=== PATIENT | female | born 1935 | race Hispanic/Latino ===

== ENCOUNTER 2016-09-29 09:50 | Inpatient (IN) | payer MEDICARE ==
[2016-09-29 09:59] VITALS: BMI 29.8
[2016-09-29 10:49] LABS: ADD MANUAL DIFF? NO
[2016-09-29 10:51] LABS: BASO # 0.03 K/mm3 (0.0-2.0); BASO % 0.4 % (0.0-3.0); EOS % 0.4 % (1.5-5.0); GRAN # 6.13 (1.4-6.5); GRAN % 77.1 % (50.0-68.0); HEMATOCRIT 34.7 % (36.0-48.0); LYMPH # 1.1 (1.2-3.4); LYMPH % 13.4 % (22.0-35.0); MEAN CELL VOLUME 92.8 fL (80.0-105.0); MEAN CORPUSCULAR HEMOGLOBIN 31.3 pg (25.0-35.0); MEAN CORPUSCULAR HGB CONC 33.7 g/dl (31.0-37.0); MEAN PLATELET VOLUME 9.9 fl (7.0-11.0); MONO # 0.7 (0.1-0.6); MONO % 8.7 % (1.0-6.0); PLATELET COUNT 147 10^3/uL (120.0-450.0); RED CELL DISTRIBUTION WIDTH 12.3 % (11.5-14.5); WHITE BLOOD COUNT 7.9 10^3/ul (4.5-11.0)
[2016-09-29 10:52] LABS: VENOUS BLOOD PH 7.33 (7.32-7.43)
[2016-09-29 11:03] LABS: INR 1.05 (0.93-1.08); PARTIAL THROMBOPLASTIN TIME 25.1 Seconds (23.7-30.8)
[2016-09-29 11:08] LABS: ALB/GLOB RATIO 1.2 (1.1-1.8); BILIRUBIN,TOTAL 1.8 mg/dL (0.2-1.3); MAGNESIUM 1.8 mg/dL (1.7-2.2); PHOSPHOROUS 2.9 mg/dL (2.5-4.5); TOTAL PROTEIN 6.9 g/dL (5.8-8.3)
[2016-09-29 11:22] LABS: TROPONIN I 0.01 ng/mL
--- NOTE | 2016-09-29 11:30 | ED PDOC ---
Arrival/HPI - General Chief Complaint: Weakness/Neurological Deficit Time Seen by Provider: 09/29/16 10:17 Historian: Patient - History of Present Illness Narrative History of Present Illness (Text): 09/29/16 12:06 80 year old female presents to the emergency department with generalized weakness and fall yesterday and today. Brother states that patient fell yesterday and that he found the patient again on the floor this morning. He reports that she has been falling more frequently. Hx of limited by the patient who is refusing to answer questions but will follow commands. Denies any medications. PMD: Dr. Hein Time/Duration: < week Symptom Onset: Gradual Symptom Course: Unchanged Modifying Factors (Text): None Associated Symptoms (Text): None Past Medical History - Provider Review Nursing Documentation Reviewed: Yes - Psychiatric Hx Substance Use: No Family/Social History - Physician Review Nursing Documentation Reviewed: Yes Family/Social History: Unknown Family HX Smoking Status: Never Smoked Hx Alcohol Use: No Hx Substance Use: No Allergies/Home Meds Allergies/Adverse Reactions: Allergies No Known Allergies Allergy (Verified 09/29/16 09:59) Review of Systems - Review of Systems Systems not reviewed;Unavailable: Uncooperative Physical Exam Vital Signs Reviewed: Yes Vital Signs Temp Pulse Resp BP Pulse Ox 09/29/16 14:15 98.6 F 79 16 118/64 98 09/29/16 13:55 96 H 16 118/64 98 09/29/16 12:16 80 16 124/116 H 98 09/29/16 12:10 83 16 99 09/29/16 10:39 147 H 149/76 09/29/16 10:00 98.5 F 83 16 154/83 H 97 Temperature: Afebrile Blood Pressure: Normal Pulse: Regular Respiratory Rate: Normal Appearance: Positive for: Well-Appearing, Non-Toxic, Comfortable Pain Distress: None Mental Status: Positive for: other (Nonverbal but awake and alert, following commands) Finger Stick Blood Glucose: 176 - Systems Exam Head: Present: Normocephalic, Ecchymosis (to the right cheek) Pupils: Present: PERRL Extroacular Muscles: Present: EOMI Conjunctiva: Present: Normal Ears: Present: Other (Left TM and right TM impacted with wax) Mouth: Present: Moist Mucous Membranes Neck: Present: Normal Range of Motion Respiratory/Chest: Present: Clear to Auscultation, Good Air Exchange. No: Respiratory Distress, Accessory Muscle Use Cardiovascular: Present: Normal S1, S2, Irregular Rhythm (Irregularly irregular) , Tachycardic. No: Murmurs Abdomen: Present: Normal Bowel Sounds. No: Tenderness, Distention, Peritoneal Signs Upper Extremity: Present: Normal ROM, Neurovascularly Intact, Other (Ecchymosis to the left shoulder). No: Tenderness Lower Extremity: Present: Normal ROM, Other (No bony hip tenderness). No: Tenderness Neurological: Present: CN II-XII Intact, Other (Moving all extremities without difficulty) Skin: Present: Warm, Dry, Normal Color. No: Rashes Psychiatric: Present: Alert, Other (Nonverbal but awake and alert, following commands) Medical Decision Making ED Course and Treatment: Impression: Patient presenting from home with fall and in new onset afib. Brother reports that this is patient's neurologic baseline, but I am concerned as she is refusing to answer questions. He continues to report "she is stubborn." In addition to observation for new onset afib, will need workup to r/o cva due to AMS, as well as labs, ua, and imaging to r/o traumatic injury, sepsis and electrolyte abnormality PROCEDURE: CT HEAD WITHOUT CONTRAST. Stone Polisher Hand : Misael Reagan MD IMPRESSION: No acute intracranial abnormalities. No significant findings to account for the clinical presentation PROCEDURE: Radiographs of the Left Shoulder Stone Polisher Hand : Dakhel, Mahmoud JOINTS: Mild osteoarthritic changes at the AC joint. Narrowing of the subacromial space. IMPRESSION: No evidence of acute fracture or dislocation. Mild osteoarthritic changes of the AC joint. PROCEDURE: Radiographs of the pelvis and bilateral hips Stone Polisher Hand : Dakhel, Mahmoud JOINTS: Right hip: Mild osteoarthritic changes Left hip: Mild osteoarthritic changes Sacroiliac Joints: Mild arthritic changes IMPRESSION: No evidence of acute fracture or dislocation. Mild osteoarthritic changes. Progress Notes: Inital EKG at 09:52 shows NSR at 79 BPM with PAC's. Repeat EKG done at 10:21 shows irregularly irregular rhythm at 156 BPM, consistent with atrial fibrillation. Cardizem ordered. Repeat EKG at 10:41 showed rate controlled afib at 100bpm. 09/29/16 12:24 Dr. Stone evaluated patient at bedside. Requesting sotalol 40mg bid which was ordered. Patient has converted and is rate controlled. 09/29/16 12:28 Labs reviewed. Trop negative. UA negative 09/29/16 13:28 CT head negative. Aspirin ordered. P:xrays and admission for new onset afib 09/29/16 14:12 Xrays negative for fracture. Spoke to PMD who agrees with admission for new onset afib. She will also need PT eval as I am concerned about her frequent falls/AMS that may necessitate rehab placement. 09/29/16 14:19 Sisters are now at bedside and report that patient is special needs. However, they are also concerned that she appears more disoriented than normally. - Lab Interpretations Lab Results: 09/29/16 10:30 09/29/16 10:30 Lab Results 09/29/16 12:10: Urine Color Yellow, Urine Appearance Clear, Urine pH 7.0, Ur Specific Tracy 1.020, Urine Protein 30 H, Urine Glucose (UA) Negative, Urine Ketones Trace H, Urine Blood Large H, Urine Nitrate Negative, Urine Bilirubin Negative, Urine Urobilinogen 0.2, Ur Leukocyte Esterase Negative, Urine RBC 20 - 25, Urine WBC 0 - 2, Ur Epithelial Cells 4 - 5, Amorphous Sediment Moderate, Urine Bacteria Many, Hyaline Casts 0 - 2 09/29/16 10:30: WBC 7.9, RBC 3.74, Hgb 11.7 L, Hct 34.7 L, MCV 92.8, MCH 31.3, MCHC 33.7, RDW 12.3, Plt Count 147, MPV 9.9, Gran % 77.1 H, Lymph % (Auto) 13.4 L, Upton % (Auto) 8.7 H, Eos % (Auto) 0.4 L, Baso % (Auto) 0.4, Gran # 6.13, Lymph # 1.1 L, Upton # 0.7 H, Eos # 0.0, Baso # 0.03, PT 11.3, INR 1.05, APTT 25.1, pO2 33, VBG pH 7.33, VBG pCO2 53.0, VBG HCO3 27.9, VBG Total CO2 29.5 H, VBG O2 Sat (Calc) 63.6, VBG Base Excess 1.0, VBG Potassium 4.0, Glucose 167 H, Lactate 1.6, FiO2 21.0, Sodium 140.0, Potassium 4.0, Chloride 109.0 H, Carbon Dioxide 27, Anion Gap 11, BUN 26 H, Creatinine 1.1, Est GFR ( Amer) 58, Est GFR (Non-Af Amer) 48, Random Glucose 162 H, Calcium 9.0, Phosphorus 2.9, Magnesium 1.8, Total Bilirubin 1.8 H, AST 20, ALT 17, Alkaline Phosphatase 92, Total Creatine Kinase 189, Troponin I 0.01, Total Protein 6.9, Albumin 3.7, Globulin 3.2, Albumin/Globulin Ratio 1.2, Venous Blood Potassium 4.0 - RAD Interpretation Radiology Orders: 09/29/16 10:18 HEAD W/O CONTRAST [CT] Stat HIP MIN 2V W/ PELVIS JOSE [RAD] Stat SHOULDER LEFT [RAD] Stat 09/29/16 11:28 CHEST TWO VIEWS (PA/LAT) [RAD] Stat Riverboat Master: Radiologist - Medication Orders Current Medication Orders: Sotalol HCl (Betapace) 40 mg PO BID ZACHARY Discontinued Medications Aspirin (Aspirin) 325 mg PO STAT STA Stop: 09/29/16 13:30 Last Admin: 09/29/16 13:35 Dose: 325 MG Diltiazem HCl (Cardizem) Confirm Administered Dose 25 mg .ROUTE .[place] ONE Stop: 09/29/16 10:33 Last Admin: 09/29/16 10:39 Dose: Diltiazem HCl (Cardizem) 15 mg IVP STAT STA Stop: 09/29/16 10:39 Last Admin: 09/29/16 10:39 Dose: 15 MG [facility] Pulse and Blood Pressure Document 09/29/16 10:39 HP (Rec: 09/29/16 10:40 [facility] [id number]) Pulse Pulse Rate (60-90) 147 Blood Pressure Blood Pressure (100/60-150/90) 149/76 IVP Administration Document 09/29/16 10:39 HP (Rec: 09/29/16 10:40 [facility] [id number]) Charges for Administration # of IVP Administrations 1 Ondansetron HCl (Zofran Inj) Confirm Administered Dose 4 mg .ROUTE .[place] ONE Stop: 09/29/16 11:54 Last Admin: 09/29/16 12:11 Dose: Ondansetron HCl (Zofran Inj) 4 mg IVP STAT STA Stop: 09/29/16 12:11 Last Admin: 09/29/16 12:12 Dose: 4 MG IVP Administration Document 09/29/16 12:12 HP (Rec: 09/29/16 12:12 [facility] [id number] Charges for Administration # of IVP Administrations 1 Disposition/Present on Arrival - Present on Arrival Any Indicators Present on Arrival: No History of DVT/PE: No History of Uncontrolled Diabetes: No Urinary Catheter: No History of Decub. Ulcer: No History Surgical Site Infection Following: None - Disposition Have Diagnosis and Disposition been Completed?: Yes Diagnosis: Atrial fibrillation Disposition: HOSPITALIZED Disposition Time: 10:28 Patient Plan: Admission Patient Problems: Current Active Problems Problem Status Diagnosed Atrial fibrillation Acute Condition: FAIR
[2016-09-29 12:23] LABS: URINE BILIRUBIN NEGATIVE (NEGATIVE); URINE BLOOD LARGE (NEGATIVE); URINE GLUCOSE (UA) NEGATIVE (NEGATIVE); URINE KETONE TRACE mg/dL (NEGATIVE); URINE LEUKOCYTE ESTERASE NEGATIVE Leu/uL (NEGATIVE); URINE PROTEIN 30 mg/dL (<30 mg/dL); URINE UROBILINOGEN 0.2 E.U./dL (<1 E.U./dL)
[2016-09-29 12:25] LABS: URINE APPEARANCE CLEAR (CLEAR); URINE COLOR YELLOW (YELLOW)
[2016-09-29 12:32] LABS: URINE RBC 20 - 25 /hpf (0-2); URINE WBC 0 - 2 /hpf (0-6)
[2016-09-29 12:33] LABS: URINE AMORPHOUS SEDIMENT MODERATE; URINE BACTERIA MANY (NEG)
--- NOTE | 2016-09-29 13:25 | CT ---
PROCEDURE: CT HEAD WITHOUT CONTRAST. HISTORY: Unspecified head injury presenting with weakness. COMPARISON: None available. TECHNIQUE: Axial computed tomography images were obtained through the head/brain without intravenous contrast. Radiation dose: Total exam DLP = 789.72 no mGy-cm. FINDINGS: HEMORRHAGE: No intracranial hemorrhage. BRAIN: No mass effect or edema. Cerebellar, cortical atrophy. VENTRICLES: Unremarkable. No hydrocephalus. CALVARIUM: Unremarkable. PARANASAL SINUSES: Unremarkable as visualized. No significant inflammatory changes. MASTOID AIR CELLS: Unremarkable as visualized. No inflammatory changes. OTHER FINDINGS: None. IMPRESSION: No acute intracranial abnormalities. No significant findings to account for the clinical presentation.
--- NOTE | 2016-09-29 14:04 | RAD ---
PROCEDURE: Radiographs of the pelvis and bilateral hips HISTORY: fall COMPARISON: None. FINDINGS: BONES: Pelvis: Unremarkable. Right hip:Unremarkable. Left hip:Unremarkable. JOINTS: Right hip: Mild osteoarthritic changes Left hip: Mild osteoarthritic changes Sacroiliac Joints: Mild arthritic changes Pubic symphysis: Unremarkable. SOFT TISSUES: Normal. OTHER FINDINGS: None. IMPRESSION: No evidence of acute fracture or dislocation. Mild osteoarthritic changes.
--- NOTE | 2016-09-29 14:06 | RAD ---
PROCEDURE: Radiographs of the Left Shoulder HISTORY: shoulder pain COMPARISON: No prior. FINDINGS: BONES: Normal. No fracture. JOINTS: Mild osteoarthritic changes at the AC joint. Narrowing of the subacromial space. SOFT TISSUES: Normal. OTHER FINDINGS: None. IMPRESSION: No evidence of acute fracture or dislocation. Mild osteoarthritic changes of the AC joint.
--- NOTE | 2016-09-29 14:07 | RAD ---
HISTORY: fall COMPARISON: No prior. TECHNIQUE: Chest PA and lateral FINDINGS: LUNGS: No active pulmonary disease. PLEURA: No significant pleural effusion identified. No pneumothorax apparent. CARDIOVASCULAR: Normal. OSSEOUS STRUCTURES: Suspicious for diffuse osteopenia. Degenerative changes at the thoracic spine. VISUALIZED UPPER ABDOMEN: Normal. OTHER FINDINGS: Mild to moderate elevation of the right hemidiaphragm IMPRESSION: No active disease. Baseline study. Icgi-tl-gchnyhmh elevation of the right hemidiaphragm.
--- NOTE | 2016-09-29 14:30 | CON ---
DATE: 09/29/2016 HISTORY OF PRESENT ILLNESS: The patient is a 80-year-old woman who lives at home, who presented with weakness. PAST MEDICAL HISTORY: Notable for confusion in the past. No previous cardiac history can be elicite d. The patient is unable to give a full history due to her confusion. However, through the brother, who she lives with, she has been complaining of weakness. There was a questionable fall yesterday. In the Emergency Room, she was found to be in atrial fibrillation. After placing the patient on dilt iazem, the patient reverted to normal sinus rhythm. Negative cardiac history is elicited. The patient is in no acute distress. SOCIAL HISTORY AND REVIEW OF SYSTEMS: Unavailable. PHYSICAL EXAMINATION: VITAL SIGNS: Blood pressure is 124/76, the heart rate is now in the 80s, normal sinus rhythm. Previ ously, the patient was in atrial fibrillation at 147. NECK: Negative JVD. LUNGS: Decreased breath sounds. HEART: Revealed S1, S2. EXTREMITIES: Without edema. EKG shows atrial fibrillation with nonspecific ST-T changes. The hemoglobin is 11.7. BUN and creatinine are unremarkable. Troponin is negative x 1. The glucose is 162. IMPRESSION: 1. Weakness. 2. New onset paroxysmal atrial fibrillation. 3. Anemia. 4. Dementia. Given these findings, we will start the patient on sotalol 40 mg b.i.d. An echocardiogram has been o rdered. The patient will be admitted to telemetry for observation. Chuy Stone MD cc: [id number] TT: 09/29/2016 14:29:55 Confirmation # [id number] Dictation # [id number] en
--- NOTE | 2016-09-29 15:32 | CARD ---
APPROVED REPORT EKG Measurement Heart [id number] <Conclusion> Atrial fibrillation with rapid ventricular response Abnormal ECG
--- NOTE | 2016-09-29 15:33 | CARD ---
APPROVED REPORT EKG Measurement Heart [id number] <Conclusion> Atrial fibrillation Nonspecific ST abnormality, probably digitalis effect Abnormal ECG
--- NOTE | 2016-09-29 15:33 | CARD ---
APPROVED REPORT EKG Measurement Heart [id number] <Conclusion> Atrial fibrillation with rapid ventricular response Nonspecific ST abnormality, probably digitalis effect Abnormal ECG
--- NOTE | 2016-09-29 15:36 | CARD ---
APPROVED REPORT EKG Measurement Heart [id number] <Conclusion> Sinus rhythm with premature atrial complexes Otherwise normal ECG
[2016-09-29] MEDS: Dextrose 5%/0.45% NS 1,000 ML IV SCH (20:30)
[2016-09-29] MEDS: Enoxaparin 30 mg Syringe SC SCH (21:48)
[2016-09-29] MEDS ORDERED: Pneumococcal 23-Valent Vaccine IM ONE (22:30)
[2016-09-29] MEDS ORDERED: Influenza Vaccine 45 MCG/0.5 ml IM ONE (22:30)
--- NOTE | 2016-09-29 23:01 | CP.PCM.PN ---
Subjective - Date & Time of Evaluation Date of Evaluation: 09/29/16 Time of Evaluation: 23:00 - Subjective Subjective: 80 year old white male was admitted with generalized weakness and fall. Has PMH of atrial fibrillation, borderline anemia, hyperglycemia, dementia. Patient states that he is in home and this is November month. As per nurse she is pulling tubing,Cox and is confused. Medical record was reviewed. Objective - Vital Signs/Intake and Output Vital Signs (last 24 hours): Temp Pulse Resp BP Pulse Ox 97.8 F 78 18 141/72 99 09/29/16 22:16 09/29/16 22:16 09/29/16 22:16 09/29/16 22:16 09/29/16 19:24 Intake and Output: 09/29/16 09/30/16 18:59 06:59 Output Total 680 Balance -680 - Medications Medications: Current Medications Aspirin (Ecotrin) 81 mg PO DAILY [facility] Atorvastatin Calcium (Lipitor) 10 mg PO DIN [facility] Enoxaparin Sodium (Lovenox) 30 mg SC Q12H [facility] PRN Reason: Protocol Last Admin: 09/29/16 21:48 Dose: 30 mg Dextrose/Sodium Chloride (Dextrose 5%/0.45% Ns 1000 Ml) 1,000 mls @ 60 mls/hr IV .[id number] [facility] Last Admin: 09/29/16 20:30 Dose: 60 mls/hr Sotalol HCl (Betapace) 40 mg PO BID [facility] Last Admin: 09/29/16 18:35 Dose: 40 mg - Labs Labs: PT 11.3 Seconds (9.9-11.8) 09/29/16 10:30 INR 1.05 (0.93-1.08) 09/29/16 10:30 APTT 25.1 Seconds (23.7-30.8) 09/29/16 10:30 - Constitutional Appears: Well, No Acute Distress - Head Exam Head Exam: ATRAUMATIC, NORMAL INSPECTION, NORMOCEPHALIC - Eye Exam Eye Exam: Normal appearance - ENT Exam ENT Exam: Normal External Ear Exam - Neck Exam Neck Exam: Normal Inspection - Respiratory Exam Respiratory Exam: NORMAL BREATHING PATTERN - Cardiovascular Exam Cardiovascular Exam: absent: JVD - GI/Abdominal Exam GI & Abdominal Exam: absent: Distended - Rectal Exam Rectal Exam: Deferred - Extremities Exam Extremities Exam: Normal Inspection - Back Exam Back Exam: NORMAL INSPECTION - Neurological Exam Neurological Exam: Altered (mental status +) - Psychiatric Exam Psychiatric exam: Agitated - Skin Skin Exam: Normal Color Assessment and Plan - Assessment and Plan (Free Text) Assessment: A/P: Agitation. Altered mental status. Dementia. Atrial fibrillation with RVR. Bilateral wrist restraint order was entered.
[2016-09-30 03:49] LABS: URINE BILIRUBIN NEGATIVE (NEGATIVE); URINE BLOOD LARGE (NEGATIVE); URINE GLUCOSE (UA) NEGATIVE (NEGATIVE); URINE KETONE 15 mg/dL (NEGATIVE); URINE LEUKOCYTE ESTERASE SMALL Leu/uL (NEGATIVE); URINE PROTEIN 30 mg/dL (<30 mg/dL)
[2016-09-30 04:00] LABS: URINE APPEARANCE SLIGHT-CLOUDY (CLEAR); URINE COLOR YELLOW (YELLOW)
[2016-09-30 04:03] LABS: URINE BACTERIA OCC (NEG); URINE EPITHELIAL CELLS 0 - 2 /hpf (0-5)
[2016-09-30 07:23] LABS: ADD MANUAL DIFF? NO
[2016-09-30 07:34] LABS: BASO # 0.02 K/mm3 (0.0-2.0); BASO % 0.3 % (0.0-3.0); EOS # 0.1 (0.0-0.7); EOS % 2.1 % (1.5-5.0); GRAN # 4.01 (1.4-6.5); GRAN % 65.6 % (50.0-68.0); HEMATOCRIT 34.5 % (36.0-48.0); LYMPH # 1.5 (1.2-3.4); LYMPH % 23.7 % (22.0-35.0); MEAN CELL VOLUME 91.8 fL (80.0-105.0); MEAN CORPUSCULAR HEMOGLOBIN 30.9 pg (25.0-35.0); MEAN CORPUSCULAR HGB CONC 33.6 g/dl (31.0-37.0); MEAN PLATELET VOLUME 10.3 fl (7.0-11.0); MONO # 0.5 (0.1-0.6); MONO % 8.3 % (1.0-6.0); PLATELET COUNT 163 10^3/uL (120.0-450.0); RED CELL DISTRIBUTION WIDTH 12.2 % (11.5-14.5); RETIC% 1.21 % (0.5-1.5); WHITE BLOOD COUNT 6.1 10^3/ul (4.5-11.0)
[2016-09-30 08:16] LABS: BILIRUBIN,TOTAL 2.1 mg/dL (0.2-1.3); POTASSIUM 3.7 mmol/L (3.6-5.0); TOTAL PROTEIN 6.8 g/dL (5.8-8.3)
[2016-09-30 08:24] LABS: FREE T4 1.53 ng/dL (0.78-2.19)
[2016-09-30 08:37] LABS: THYROID STIMULATING HORMONE 1.35 mIU/mL (0.46-4.68)
[2016-09-30] MEDS: Enoxaparin 30 mg Syringe SC SCH ×2 (09:19→21:05)
--- NOTE | 2016-09-30 10:55 | PN ---
DATE: 09/30/2016 The patient remains confused. Her swallow evaluation revealed abnormalities in her swallowing mechan ism. PHYSICAL EXAMINATION: VITAL SIGNS: Blood pressure is 137/73, the heart rate is in the 70s, normal sinus rhythm. NECK: Negative JVD. LUNGS: Decreased breath sounds. HEART: Revealed S1, S2. EXTREMITIES: Without edema. LABORATORIES: TFTs are unremarkable. Bilirubin is up to 2.1, BUN and creatinine are unremarkable. Hemoglobin is 11.6. IMPRESSION: 1. Paroxysmal atrial fibrillation, which is back to normal sinus rhythm. 2. Weakness. 3. Marked dementia. 4. Anemia. 5. Marked confusion. Given these findings, we will continue to monitor the patient on telemetry for the next 24 hours. We will need to consider placing a nasogastric feeding tube for her. An echocardiogram is pending. Chuy Stone MD cc: [id number] TT: 09/30/2016 10:54:10 Confirmation # [id number] Dictation # [id number] en
[2016-09-30 13:32] LABS: FOLATE 2.7 ng/mL
--- NOTE | 2016-09-30 13:41 | US ---
PROCEDURE: Bilateral carotid artery duplex ultrasound HISTORY: Carotid stenosis ? TIA PHYSICIAN(S): Chuy Frank MD. TECHNIQUE: Duplex sonography and color-flow Doppler were used to evaluate the carotid bifurcations and limited segments of the vertebral arteries bilaterally. The exam is somewhat limited by tortuous vessels. FINDINGS: There is mild smooth heterogeneous plaque noted at the carotid bifurcations bilaterally. The peak systolic velocity in the proximal right internal carotid artery is 75 cm/sec. This corresponds to a 20 to 39% proximal right ICA stenosis. Normal systolic velocities are noted in the proximal right external carotid artery. There is antegrade flow in the right vertebral artery. The peak systolic velocity in the proximal left internal carotid artery is 71 cm/sec. This corresponds to a 20 to 39% proximal left ICA stenosis. Normal systolic velocities are noted in the proximal left external carotid artery. There is antegrade flow in the left vertebral artery. IMPRESSION: 1. 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 2. Antegrade flow in both vertebral arteries.
[2016-09-30] MEDS: Dextrose 5%/0.45% NS 1,000 ML IV SCH (15:33)
--- NOTE | 2016-09-30 17:44 | CARD ---
APPROVED REPORT EXAM: Two-dimensional and M-mode echocardiogram with Doppler and color Doppler. INDICATION Atrial Fibrillation 2D DIMENSIONS Left Atrium (2D)3.1 (1.6-4.0cm)IVSd0.9 (0.7-1.1cm) LVDd4.4 (3.9-5.9cm)PWd1.1 (0.7-1.1cm) LVDs3.3 (2.5-4.0cm)FS (%) 26.1 % LVEF (%)51.5 (>50%) M-Mode DIMENSIONS Aortic Root2.40 (2.2-3.7cm)Aortic Cusp Exc.1.60 (1.5-2.0cm) Aortic Valve AoV Peak Enynhuoi693.0cm/Lupe Peak GR.20mmHg Mitral Valve MV E Byhxysje76.9cm/sMV A Wpdiudph940.0cm/sE/A ratio0.7 TDI E/Lateral E'0.0E/Medial E'0.0 Tricuspid Valve TR Peak Fexbvbdh979ze/sRAP HYBQBVLL73saDcZC Peak Gr.27mmHg TKAK92qmBi LEFT VENTRICLE The left ventricle is normal size. There is borderline concentric left ventricular hypertrophy. The left ventricular function is normal. The left ventricular ejection fraction is within the normal range. Transmitral Doppler flow pattern is Grade I-abnormal relaxation pattern. RIGHT VENTRICLE The right ventricle is normal size. There is normal right ventricular wall thickness. The right ventricular systolic function is normal. ATRIA The left atrium size is normal. The right atrium size is normal. AORTIC VALVE The aortic valve is mildly thickened. MITRAL VALVE Mitral regurgitation is mild to moderate. TRICUSPID VALVE There is mild tricuspid regurgitation. There is mild pulmonary hypertension. PULMONIC VALVE There is trace pulmonic valvular regurgitation. GREAT VESSELS The aortic root displays mild to moderate sclerocalcific changes of the aortic root. PERICARDIAL EFFUSION There is a trace loculated anterior pericardial effusion. <Conclusion> The left ventricle is normal size. There is borderline concentric left ventricular hypertrophy. The left ventricular function is normal. The left ventricular ejection fraction is within the normal range. Transmitral Doppler flow pattern is Grade I-abnormal relaxation pattern. Mitral regurgitation is mild to moderate. There is mild tricuspid regurgitation. There is mild pulmonary hypertension.
--- NOTE | 2016-09-30 19:05 | CON ---
DATE: 09/30/2016 CHIEF COMPLAINT: Altered mental status, generalized weakness. HISTORY OF PRESENT ILLNESS: This is a 80-year-old woman with a past medical history of anemia and de mentia, who came into the hospital for generalized weakness and fall yesterday. The patient's brothe nicky stated that the patient fell yesterday and that he found the patient again on the floor this bonnin g. She has been falling very frequently. Has limited history due to patient's refusal to answer que stions, but she follows simple commands. CT head showed no acute intracranial abnormalities. She wa s found to be in new onset AFib in the ER. Cardiology is on board. She seems mildly dehydrated on h er labs. Her carotid ultrasound showed 20%-39% proximal ICA stenosis. Currently, she underwent an M RI of the brain, result is pending. Image is not up yet to interpret. She will likely need rehabili tation evaluation. PAST MEDICAL HISTORY: History of anemia and dementia. SOCIAL HISTORY: No illicit drug use, smoking, or ETOH abuse. REVIEW OF SYSTEMS: Unable to obtain due to the patient's underlying delirious altered mental status. FAMILY HISTORY: Noncontributory. MEDICATIONS: Reviewed via nurse's reconciliation sheet. PHYSICAL EXAMINATION: VITAL SIGNS: Temperature 98.8, pulse rate 74, blood pressure 160/80, respiratory rate of 20. GENERAL: The patient is sitting up in bed in no acute distress. HEENT: Atraumatic, normocephalic. PERRLA. Extraocular muscles intact. NECK: Supple, no JVD, no adenopathy noted. LUNGS: Decreased breath sounds bilaterally. HEART: S1, S2, regular rate and rhythm. No murmurs, rubs, or gallops. ABDOMEN: Soft, nontender, nondistended. Bowel sounds are present. EXTREMITIES: No clubbing, no cyanosis. Peripheral pulses 2+ felt bilaterally. NEUROLOGIC: The patient is alert, oriented to person and place, not much of month and year. Speech is hypophonic, but no aphasia noted. Cranial nerves II through XII are intact. MOTOR: Slight increased tone throughout. Moves all extremities equally. Toes downgoing bilaterally . SENSORY: Light touch is intact, withdraws to localized noxious stimulus. DTRs are 1+ throughout. COORDINATION AND GAIT: Deferred for now. LABORATORY DATA: Sodium is 139, potassium 3.7, chloride 105, carbon dioxide 26, BUN of 24, creatinin e 1.1. Random glucose of 122. ASSESSMENT AND PLAN: This is a 80-year-old woman with history of dementia, history of anemia and art hritis, who has been having frequent falls and was found on the floor by her brother in the morning, was brought for further evaluation. She is very deconditioned and has some underlying cognitive impa irment. She was found to be in new onset atrial fibrillation, which cardiology is on board, which is currently controlled on Sotalol. At this time, her transient confusional state as well as generaliz ed weakness could be underlying deconditioned state, superimposed underlying new onset atrial fibrill ation At this time, recommend: 1. Aspirin 81 mg and Lipitor 10 mg p.o. daily for stroke prevention. 2. Monitor heart rate and also her atrial fibrillation and follow up with cardiology. 3. Get a physical therapy evaluation. 4. MRI of the brain without contrast. At this time, continue with current present medical management. Thank you for this consult. Sebastián Christian MD cc: [id number] TT: 09/30/2016 19:05:04 Confirmation # [id number] Dictation # [id number] homer
--- NOTE | 2016-09-30 22:25 | PN ---
DATE: 09/30/2016 The patient was seen this Monday morning in room 272, bed 2 after having been seen only some 14 hours ago in the Emergency Room, late last night. The patient is a bit more awake and more talkative. Leila emanuel is able to answer simple questions, does not seem to be aware that she is in the hospital, but tell s me that she has no pain and is relatively comfortable. PHYSICAL EXAMINATION: GENERAL: The patient is awake, but not communicative. There is no focal motor deficit. She is movi ng all extremities, but does not follow commands. HEENT: Conjunctivae are pink. Mucous membranes are moist. LUNGS: Show good aeration, right and left. HEART: Regular, but not tachycardic. EXTREMITIES: Show no edema. IMPRESSION: 1. New onset atrial fibrillation. 2. Acute altered mental status. 3. Suspected acute stroke, perhaps related to embolic phenomenon of atrial fibrillation. 4. Intellectual handicap since childhood. 5. No other past medical history, prior to this hospital encounter with the healthcare system prior t o this hospitalization. PLAN: Carotid ultrasound. MRI ordered for today. Echocardiogram was also ordered by hospital unit coordinator, Dr. Stone. The patient remains in sinus rhythm, on oral sotalol. We will await the MRI and carotid u ltrasounds and discussed with neurology, after the patient is seen. This afternoon, and again later this evening, I spoke with the patient's brother, Juvenal. He will mitali k with his sisters again tomorrow, and is not ready to comment on resuscitation status and heroic ef forts. So, we will continue our workup and treatment for him, as above. Gregg Hein MD cc: [id number] TT: 09/30/2016 22:24:41 Confirmation # [id number] Dictation # [id number] ln
--- NOTE | 2016-09-30 23:00 | HP ---
CHIEF COMPLAINT: Fall at home with altered mental status. HISTORY OF PRESENT ILLNESS: This is a 80-year-old woman, a new patient to me, living at home with her brother, having never accessed the healthcare system at the hospital. This is her 1st hospital visit in hospital today. She was only to the office once several years ago, with what the family's recalls as being a relatively simple problem. She does not taking any medications, and she has no past medical history. She had a fall a few days ago, and then another fall again today. Her brother helped her on both occasions, but now she has had altered mental status, not talking, not acting her usual self, and therefore was taken to the Emergency Room. PAST MEDICAL HISTORY: Negative for hypertension, diabetes, tuberculosis, asthma , seizures, TIA, CVA, CO, CAD, or cancers of any type. There is no prior hospitalizations or surgeries. She does not take any medication. She does not smoke or drink alcohol. She lives with her brother. She is single , never . She has intellectually and emotional/socially handicapped since childhood. She did not finish school, was not able to work, and was sheltered and cared for by a devoted family. REVIEW OF SYSTEMS: Not obtainable in the Emergency Room, as patient is weak and lethargic, and barely communicative. On physical exam the patient was seen in the Emergency Room this evening, slot #13, with her 2 sisters at the bedside. She is awake, eyes are open; at times wandering and often gazing off and to the right. She speaks only a few words, saying things like "put on numbers" and put on 34", referring to the channel 34 on the television, but does not answer questions appropriately , does not seem to understand my presence. She does not appear to be oriented at all. Conjunctivae are pink. Mucous membranes are moist. NECK: Supple, with no masses. Thyroid is not palpable. LUNGS: Show good aeration, right and left. HEART: Regular, not tachycardic at this time, although was reportedly she was in AFib at the time of presentation. ABDOMEN: Soft, nontender. EXTREMITIES: Show no edema and are thin. IMPRESSION: 1. Initially presented to the Emergency Room with altered mental status and atrial fibrillation. 2. Altered mental status with possible cerebrovascular accident. Must rule out embolic phenomenon with the recent atrial fibrillation. 3. History of social and developmental handicap since childhood. PLAN: Based on the acute nature of the altered mental status related to the time of the fall, CT scan was done in the Emergency Room which shows no bleed. I still have to suspect a CVA, and a possibility of an embolic CVA is high list of her differential diagnoses. Therefore, will begin aspirin, statin, anticoagulants, but with a cautious dose as there may be a significant infarct apparent on MRI in the future. Will ask neurology consultation. The patient was seen in the Emergency Room. Fortunately, Dr. Chuy Stone, route delivery supervisor, was present when she arrived. She is now in sinus rhythm and sotalol has been prescribed. Will continue that medication for now. I spoke with the patient's 2 sisters at length. They were not prepared to answer questions about heroic efforts and resuscitative efforts. Her brother is in charge of her overall care , and will be here tomorrow. Therefore, the patient went to medical floor. Will also add some IV fluids, do a swallowing evaluation, order an MRI, carotid ultrasounds, and reassess the situation in the morning after consultation with neurology and cardiology in the morning followup exams. Gregg Hein MD cc: [id number] TT: 09/30/2016 22:59:57 jn MTDD
--- NOTE | 2016-09-30 23:37 | CP.PCM.PN ---
Subjective - Date & Time of Evaluation Date of Evaluation: 09/30/16 Time of Evaluation: 23:33 - Subjective Subjective: It was requested to renew bilateral wrist restraints. Patient was seen at bedside. Is awake,staring, not communication. Trying to pull tubing. 80 year old white male was admitted with generalized weakness and fall. Has PMH of atrial fibrillation, borderline anemia, hyperglycemia, dementia. Medical record was reviewed. Objective - Vital Signs/Intake and Output Vital Signs (last 24 hours): Temp Pulse Resp BP Pulse Ox 98.8 F 83 20 160/80 H 97 09/30/16 18:00 09/30/16 22:00 09/30/16 18:00 09/30/16 18:00 09/30/16 05:32 Intake and Output: 09/30/16 10/01/16 18:59 06:59 Intake Total 0 Output Total 175 Balance -175 - Medications Medications: Current Medications Aspirin (Ecotrin) 81 mg PO DAILY [facility] Last Admin: 09/30/16 10:08 Dose: Not Given Atorvastatin Calcium (Lipitor) 10 mg PO DIN [facility] Last Admin: 09/30/16 17:14 Dose: Not Given Enoxaparin Sodium (Lovenox) 30 mg SC Q12H [facility] PRN Reason: Protocol Last Admin: 09/30/16 21:05 Dose: 30 mg Dextrose/Sodium Chloride (Dextrose 5%/0.45% Ns 1000 Ml) 1,000 mls @ 60 mls/hr IV .[id number] [facility] Last Admin: 09/30/16 15:33 Dose: 60 mls/hr Sotalol HCl (Betapace) 40 mg PO BID [facility] Last Admin: 09/30/16 17:13 Dose: Not Given - Labs Labs: 09/30/16 07:00 09/30/16 07:00 PT 11.3 Seconds (9.9-11.8) 09/29/16 10:30 INR 1.05 (0.93-1.08) 09/29/16 10:30 APTT 25.1 Seconds (23.7-30.8) 09/29/16 10:30 - Constitutional Appears: No Acute Distress - Head Exam Head Exam: ATRAUMATIC, NORMAL INSPECTION, NORMOCEPHALIC - Eye Exam Eye Exam: Normal appearance - ENT Exam ENT Exam: Normal External Ear Exam - Neck Exam Neck Exam: Normal Inspection - Respiratory Exam Respiratory Exam: NORMAL BREATHING PATTERN - Cardiovascular Exam Cardiovascular Exam: absent: JVD - GI/Abdominal Exam GI & Abdominal Exam: absent: Distended - Rectal Exam Rectal Exam: Deferred - Extremities Exam Extremities Exam: Normal Inspection - Back Exam Back Exam: NORMAL INSPECTION - Neurological Exam Neurological Exam: Altered - Psychiatric Exam Psychiatric exam: Agitated - Skin Skin Exam: Normal Color Assessment and Plan - Assessment and Plan (Free Text) Assessment: A/P:Agiation. Dementia. Atrial fibrillation. Bilateral wrist restraint order was renewed.
[2016-10-01] MEDS: Dextrose 5%/0.45% NS 1,000 ML IV SCH ×2 (05:49→22:38)
[2016-10-01 06:49] LABS: ADD MANUAL DIFF? NO
[2016-10-01 07:08] LABS: BILIRUBIN,TOTAL 1.5 mg/dL (0.2-1.3); CALCIUM 8.6 mg/dL (8.4-10.5); POTASSIUM 3.4 mmol/L (3.6-5.0); TOTAL PROTEIN 6.3 g/dL (5.8-8.3)
[2016-10-01 07:09] LABS: BASO # 0.03 K/mm3 (0.0-2.0); BASO % 0.5 % (0.0-3.0); EOS # 0.2 (0.0-0.7); EOS % 2.8 % (1.5-5.0); GRAN # 3.87 (1.4-6.5); GRAN % 60.8 % (50.0-68.0); HEMATOCRIT 33.3 % (36.0-48.0); LYMPH # 1.7 (1.2-3.4); LYMPH % 26.3 % (22.0-35.0); MEAN CELL VOLUME 91.2 fL (80.0-105.0); MEAN CORPUSCULAR HEMOGLOBIN 31.2 pg (25.0-35.0); MEAN CORPUSCULAR HGB CONC 34.2 g/dl (31.0-37.0); MEAN PLATELET VOLUME 10.3 fl (7.0-11.0); MONO # 0.6 (0.1-0.6); MONO % 9.6 % (1.0-6.0); PLATELET COUNT 158 10^3/uL (120.0-450.0); RED CELL DISTRIBUTION WIDTH 12.2 % (11.5-14.5); WHITE BLOOD COUNT 6.4 10^3/ul (4.5-11.0)
--- NOTE | 2016-10-01 08:17 | PN ---
DATE: 10/01/2016 The patient remains lethargic. PHYSICAL EXAMINATION: VITAL SIGNS: Blood pressure is 161/90. The heart rate is in the 70s, normal sinus rhythm. NECK: Negative JVD. LUNGS: Decreased breath sounds. HEART: Reveals S1, S2. EXTREMITIES: Without edema. LABORATORIES: Hemoglobin is 11.4. Chemistries: BUN and creatinine is 21 and 1.1. Echocardiogram reveals good LV function, mild pulmonary hypertension. IMPRESSION: 1. Paroxysmal atrial fibrillation. 2. Altered mental status. 3. Dementia. 4. Anemia. PLAN: Given these findings, the patient remains in normal sinus rhythm on half dose sotalol. The patient has difficulty swallowing, we will need to consider a feeding tube. Chuy Stone MD cc: [id number] TT: 10/01/2016 08:16:44 Confirmation # [id number] Dictation # [id number] id
--- NOTE | 2016-10-01 11:18 | MRI ---
PROCEDURE: MRI BRAIN WITHOUT CONTRAST HISTORY: ams, ?cva COMPARISON: Noncontrast head CT from 09/29/2016 TECHNIQUE: Multiplanar, multisequence MR images of the brain were obtained without intravenous contrast enhancement. FINDINGS: HEMORRHAGE: None DWI: No evidence of an acute or early subacute infarction. BRAIN PARENCHYMA: Examination is of suboptimal diagnostic quality due to motion degraded images. Allowing for this there is no mass, mass effect or abnormal extra-axial fluid collection. There are moderate chronic microangiopathic changes. VENTRICLES: There is moderate global parenchymal volume loss and proportionate enlargement of the ventricles and cortical sulci. There are prominent perivascular spaces in the basal ganglia. CRANIUM: There is normal bone marrow signal pattern. ORBITS: Grossly unremarkable. PARANASAL SINUSES/MASTOIDS: Predominantly clear. There is a small right mastoid effusion. VASCULAR SYSTEM: There are normal signal voids in the larger intracranial arteries. . OTHER FINDINGS: None. IMPRESSION: Suboptimal diagnostic quality due to motion degraded images. Allowing for this, no acute intracranial abnormality. Moderate chronic microangiopathic changes and moderate age-related global parenchymal volume loss.
[2016-10-01] MEDS: Enoxaparin 30 mg Syringe SC SCH ×2 (11:58→22:33)
--- NOTE | 2016-10-01 15:17 | PN ---
DATE: 10/01/2016 CHIEF COMPLAINT: Altered mental status and generalized weakness follow up. SUBJECTIVE: The patient seen and examined at bedside. She is more alert, more verbal. She has base line childhood intellectual dysfunction. She has baseline dementia as well. Her carotid ultrasound showed 20%-39% proximal ICA stenosis. MRI of the brain showed no acute intracranial abnormality at a . She is in normal sinus rhythm with a half dose of sotalol. She had an episode of paroxysmal atr ial fibrillation. She remains slightly lethargic. She came in with elevated systolic and diastolic blood pressure which likely led to her abrupt confusion. Urine cultures currently show no growth. S he is currently on aspirin and Lipitor for stroke prevention. PAST MEDICAL HISTORY: Anemia, dementia. SOCIAL HISTORY: No illicit drug use, smoking, or ETOH abuse. REVIEW OF SYSTEMS: A 14-point review of systems is negative except the HPI. FAMILY HISTORY: Noncontributory. MEDICATIONS: Reviewed via nurse's reconciliation sheet. ALLERGIES: No known drug allergies. FAMILY HISTORY: Noncontributory. PHYSICAL EXAMINATION: VITAL SIGNS: Temperature 96.8, pulse rate 70, blood pressure 161/89, respiratory rate of 20, oxygen 98% via nasal cannula. GENERAL: The patient is sitting up on the edge of the bed. HEENT: Atraumatic, normocephalic. PERRLA. Extraocular muscles intact. NECK: Supple, no JVD, no adenopathy noted. LUNGS: Clear to auscultation. No adventitious sounds. HEART: S1, S2, normal rate and rhythm. No murmurs, rubs, or gallops. ABDOMEN: Soft, nontender, nondistended. Bowel sounds are present. EXTREMITIES: No clubbing, no cyanosis. Peripheral pulses 2+ felt bilaterally. NEUROLOGIC: The patient is alert, oriented to place and person, but not much of month or year. Reca ll after 5 minutes is 0/3. Poor attention span, slow thought process. Speech is hypophonic, but no aphasia noted. Cranial nerves II through XII are intact. MOTOR: Slight increased tone throughout. Moves all extremities equally. Toes are downgoing bilater ally. No pronator drift seen. SENSORY: Light touch is intact, withdraws to localized noxious stimulus. DEEP TENDON REFLEXES: 1+ throughout. COORDINATION AND GAIT: Deferred for now. LABORATORY DATA: Sodium is 139, potassium 3.4, chloride 103, carbon dioxide 26, BUN of 21, creatinin e 1.1, random glucose 113. ASSESSMENT AND PLAN: This is a 80-year-old woman with past medical history of dementia, history of c hildhood intellectual disorder, history of anemia, arthritis, has had frequent falls and found on the floor by her brother, and was brought to the hospital for further evaluation. She looks very decond itioned, has some underlying cognitive impairment. She was found in paroxysmal atrial fibrillation a nd is currently controlled with 1/2 dose of sotalol. Cardiology is on board. She came in with eleva oscar systolic and diastolic blood pressures with transient confusional state and generalized weakness. MRI of the brain showed no acute intracranial abnormality, just generalized atrophy. Her altered m ental status and generalized weakness is secondary to transient confusional state from hypertensive u rgency, superimposed underlying deconditioned state causing generalized weakness and was also slightl y dehydrated. At this time, recommend: 1. Monitor electrolytes and correct accordingly. 2. Keep blood pressure between 120-130 mmHg systolic. 3. Aspirin 81 mg, Lipitor 10 mg daily for stroke prevention. 4. Physical therapy evaluation and possibly will need some subacute rehabilitation for her gait impa irment. At this time, could consider to get a B12 level as well. Continue current present medical m anagement. Thank you for this followup. No further neurological workup needed at this time. Sebastián Christian MD cc: [id number] TT: 10/01/2016 15:15:55 Confirmation # [id number] Dictation # [id number] homer
--- NOTE | 2016-10-01 15:46 | PN ---
DATE: 10/01/2016 The patient was seen this Monday morning in room 372, bed 1. She is on a mc kay stitcher. Her m onitor shows sinus rhythm with no extrasystoles, no significant ectopy and no bursts of atrial fibril lation. Cardiology note from earlier this morning by Dr. Stone is appreciated. Neurology note was ap preciated. MRI report is pending, but I reviewed the scan myself. To me it looks like a lot of que on artifact, I do not see any gross abnormalities making it not terribly helpful in our situation. PHYSICAL EXAMINATION: GENERAL: The patient was much more lethargic today, sleepy through the entire visit and not at all a rousable. She did not respond verbally. She does respond to touch. HEENT: Conjunctivae are pink. Mucous membranes are moist. LUNGS: Show good aeration, right and left. HEART: Regular, not tachycardic. The rate is around 80. ABDOMEN: Soft, nontender. EXTREMITIES: Show no edema. IMPRESSION: Altered mental status in a 80-year-old woman after a transient episode of atrial fibrill ation. I cannot help but suspect this is related to a cerebrovascular accident as her mental status and state of consciousness is markedly abnormal from her baseline. Neurology consult appreciated. W orkup including B12 and folate are pending. If MRI is not helpful, will repeat a CT scan tomorrow. Later this afternoon, I spoke with the patient's brother, Juvenal. He requested do not resuscitate ord er be written in the chart in view of the sisters underlying condition, state of health and quality o f life. She has been identified by his other sisters as the [employer] salesperson in the family and nick es with the patient and therefore a DNR/DNI order is written in the chart. Gregg Hein MD Azael Frank MD cc: [id number] TT: 10/01/2016 15:45:25 Confirmation # [id number] Dictation # [id number] dn
[2016-10-02 07:09] LABS: ADD MANUAL DIFF? NO
[2016-10-02 07:22] LABS: BASO # 0.03 K/mm3 (0.0-2.0); BASO % 0.4 % (0.0-3.0); EOS # 0.2 (0.0-0.7); EOS % 3.1 % (1.5-5.0); GRAN # 4.36 (1.4-6.5); GRAN % 61.7 % (50.0-68.0); HEMATOCRIT 34.5 % (36.0-48.0); LYMPH # 1.9 (1.2-3.4); LYMPH % 27.4 % (22.0-35.0); MEAN CORPUSCULAR HEMOGLOBIN 30.9 pg (25.0-35.0); MEAN CORPUSCULAR HGB CONC 33.9 g/dl (31.0-37.0); MEAN PLATELET VOLUME 9.9 fl (7.0-11.0); MONO # 0.5 (0.1-0.6); MONO % 7.4 % (1.0-6.0); PLATELET COUNT 172 10^3/uL (120.0-450.0); RED CELL DISTRIBUTION WIDTH 12.2 % (11.5-14.5); WHITE BLOOD COUNT 7.1 10^3/ul (4.5-11.0)
[2016-10-02 07:26] LABS: ALKALINE PHOSPHATASE 64 U/L (38-133); ALT/SGPT 29 U/L (7-56); AST/SGOT 45 U/L (15-39); BILIRUBIN,TOTAL 1.5 mg/dL (0.2-1.3); BLOOD UREA NITROGEN 16 mg/dL (7-21); CALCIUM 8.4 mg/dL (8.4-10.5); CARBON DIOXIDE 27 mmol/L (21-33); CHLORIDE 99 mmol/L (98-107); GFR AFRICAN-AMERICAN > 60; GLUCOSE,RANDOM 110 mg/dL (70-110); POTASSIUM 3.9 mmol/L (3.6-5.0); SODIUM 136 mmol/L (132-148); TOTAL PROTEIN 6.8 g/dL (5.8-8.3)
--- NOTE | 2016-10-02 08:29 | PN ---
DATE: 10/02/2016 The patient remains confused and lethargic. PHYSICAL EXAMINATION: VITAL SIGNS: Blood pressure is 145/75, the heart rate is in the 70s, normal sinus rhythm. NECK: Negative JVD. LUNGS: Without rales. HEART: Revealed S1, S2 with a I/ systolic murmur. EXTREMITIES: Without edema. Hemoglobin is 11.7. Chemistries unremarkable. IMPRESSION: 1. Paroxysmal atrial fibrillation. 2. Altered mental status. 3. Anemia. 4. Dementia. Given these findings, the patient's hemodynamics are stable and she remains in normal sinus rhythm. The patient's status is now do not resuscitate/do not intubate. We will continue supportive care. We will discontinue telemetry today. Chuy Stone MD cc: [id number] TT: 10/02/2016 08:28:43 Confirmation # [id number] Dictation # [id number] en
[2016-10-02] MEDS: Enoxaparin 30 mg Syringe SC SCH ×2 (08:41→20:15)
[2016-10-02] MEDS: Dextrose 5%/0.45% NS 1,000 ML IV SCH ×3 (08:41→17:00)
[2016-10-03] MEDS: Dextrose 5%/0.45% NS 1,000 ML IV SCH ×2 (02:25→20:53)
[2016-10-03 07:42] LABS: ADD MANUAL DIFF? NO
[2016-10-03 07:47] LABS: BASO # 0.03 K/mm3 (0.0-2.0); BASO % 0.5 % (0.0-3.0); EOS # 0.3 (0.0-0.7); EOS % 5.3 % (1.5-5.0); GRAN # 3.11 (1.4-6.5); GRAN % 52.7 % (50.0-68.0); HEMATOCRIT 32.5 % (36.0-48.0); LYMPH # 1.8 (1.2-3.4); LYMPH % 30.8 % (22.0-35.0); MEAN CELL VOLUME 88.8 fL (80.0-105.0); MEAN CORPUSCULAR HEMOGLOBIN 30.6 pg (25.0-35.0); MEAN CORPUSCULAR HGB CONC 34.5 g/dl (31.0-37.0); MEAN PLATELET VOLUME 9.9 fl (7.0-11.0); MONO # 0.6 (0.1-0.6); MONO % 10.7 % (1.0-6.0); PLATELET COUNT 180 10^3/uL (120.0-450.0); WHITE BLOOD COUNT 5.9 10^3/ul (4.5-11.0)
[2016-10-03 08:07] LABS: BLOOD UREA NITROGEN 11 mg/dL (7-21); CALCIUM 8.4 mg/dL (8.4-10.5); CARBON DIOXIDE 27 mmol/L (21-33); CHLORIDE 102 mmol/L (95-110); GFR AFRICAN-AMERICAN > 60; GLUCOSE,RANDOM 120 mg/dL (70-110); POTASSIUM 3.4 mmol/L (3.6-5.0); SODIUM 137 mmol/L (132-148)
--- NOTE | 2016-10-03 08:44 | PN ---
DATE: 10/02/2016 The patient was seen this Monday morning in room 372, bed 1. She is in bed, more awake, but not conv ersant, alert and clear as described in the neurologist's notes as of yesterday. Note to neurologist: Please note there is no history of dementia in this patient, but that she is sanchez ndicapped since childhood and has not accessed the healthcare system in the past many years. The patient remains in telemetry, in sinus rhythm. MRI was done, but is a markedly limited value bec ause of severe motion artifact. Therefore, we will do a repeat CT scan later today to look for CVA. In the meantime, patient's lethargy remains with the only abnormality so far turning up was her low B12 level. We will continue IV hydration and wait for her to awaken and clear her mental status. Later in the afternoon this Monday, I received a call from the nurse. The patient seemed to have wok en up. She is more alert and clear, responsive, able to swallow, able to take her medications and en iain a meal. Her diet has been advanced to pureed and again, we will follow closely. I spoke with the patient's brother. I will need to discuss the case with case management and social work therapist in the morning as he feels he would not be able to take care of her at home in this state. She will need to look into subacute rehab facility with the possibility of long-term care. DNR/DNI r emains in effect. I also broached the idea of hospice with him, not knowing that the patient was goi ng to wake up later in the day and this is an issue he will be open to in the future if her condition deteriorates or does not progress. Gregg Hein MD cc: [id number] TT: 10/03/2016 08:43:36 Confirmation # [id number] Dictation # [id number] en
[2016-10-03 09:09] LABS: ERYTHROCYTE SEDIMENTATION RATE 66 mm/hr (0.0-20.0)
[2016-10-03] MEDS: Enoxaparin 30 mg Syringe SC SCH ×2 (10:04→21:02)
[2016-10-03] MEDS ORDERED: Potassium Chloride 20 mEq/15 ml LIQ UD PO STA (14:17)
--- NOTE | 2016-10-03 15:49 | PN ---
DATE: 10/03/2016 The patient is comfortable. She still remains very confused. PHYSICAL EXAMINATION: VITAL SIGNS: Blood pressure is 161/74, the heart rate is in the 80s, normal sinus rhythm. NECK: Negative JVD. LUNGS: Without rales. HEART: Revealed S1, S2. EXTREMITIES: Without edema. Hemoglobin is 11.2. Chemistries: Potassium is 3.4. IMPRESSION: 1. Altered mental status. 2. Paroxysmal atrial fibrillation. The patient remains in normal sinus rhythm. 3. Anemia. Given these findings, the patient remains in sinus rhythm, on low-dose sotalol. We will continue her sotalol as well as her subacute Lovenox to prevent deep venous thromboses. Chuy Stone MD cc: [id number] TT: 10/03/2016 15:48:37 Confirmation # [id number] Dictation # [id number] en
--- NOTE | 2016-10-03 20:46 | PN ---
DATE: 10/03/2016 CHIEF COMPLAINT: Followup for altered mental status and generalized weakness. SUBJECTIVE: The patient seen and examined at bedside. Her MRI of the brain showed no acute intracra nial abnormality. She does have a low B12 level. She is currently receiving B12 at 1000 mcg IM rajendra y. She is on aspirin and statin for stroke prevention. Her heart rate is no longer in afib. PAST MEDICAL HISTORY: Anemia and dementia. SOCIAL HISTORY: No illicit drug use, smoking, or EtOH abuse. REVIEW OF SYSTEMS: A 14-point review of systems negative except as noted in the HPI. FAMILY HISTORY: Noncontributory. MEDICATIONS: Reviewed via nurse's reconciliation sheet. ALLERGIES: No known drug allergies. PHYSICAL EXAMINATION: VITAL SIGNS: Temperature 97.6, pulse rate of 66, blood pressure 167/89, respiratory rate of 19, oxyg en saturation 97% via room air. GENERAL: The patient is sitting up in bed in no acute distress. HEENT: Atraumatic, normocephalic. PERRLA. Extraocular muscles intact. NECK: Supple, no JVD, no adenopathy noted. LUNGS: Clear to auscultation. No adventitious sounds. HEART: S1, S2, normal rate and rhythm. No murmurs, rubs, or gallops. ABDOMEN: Soft, nontender, nondistended. Bowel sounds present. EXTREMITIES: No clubbing, no cyanosis. Peripheral pulses 2+ felt bilaterally. NEUROLOGIC: The patient is alert, oriented to self, but not to person, month or year. Recall at 5 m inutes is 0/3. Poor attention span, slow thought process. Speech is hypophonic. No aphasia noted. Cranial nerves II through XII are intact. MOTOR: Slight increased tone throughout. Moves all extremities equally. Toes are downgoing bilater ally. . SENSORY: Light touch is intact, withdraws to localized noxious stimulus. DTRs are 1+ throughout. COORDINATION AND GAIT: Deferred for now. LABORATORY DATA: Reviewed. ASSESSMENT AND PLAN: A 80-year-old woman with past medical history of dementia, history of child int ellectual disorder, history of anemia, arthritis, history of frequent falls and found on the floor by her brother and was brought to the hospital for further evaluation. She was very deconditioned and has some underlying cognitive impairment. She was found to have paroxysmal afib, which was controlle d with a half dose of . Cardiology is on board. She also had elevated systolic and diastolic b lood pressure that resulted in transient confusional state and generalized weakness. MRI of the brai n showed no acute intracranial abnormality. She was found to have a low B12 level, which she is gett ing supplementation for. Overall, altered mental status and generalized weakness could be secondary to transient confusional state for hypertensive urgency, superimposed underlying deconditioning could cause generalized weakness as well as also mild dehydration. At this time, recommend: 1. Keep her systolic blood pressure between 120-130 mmHg. 2. Aspirin 81 mg and Lipitor 10 mg p.o. daily for stroke prevention. 3. B12 1000 mcg IM injection since her B12 is low. 4. Consider a physical therapy evaluation and possible need subacute rehabilitation and long-term ca re. 5. Continue with current present medical management for now. No further neurological workup at this time. We will sign off. Sebastián Christian MD cc: [id number] TT: 10/03/2016 20:46:11 Confirmation # [id number] Dictation # [id number] mn
[2016-10-04] MEDS: Dextrose 5%/0.45% NS 1,000 ML IV SCH ×2 (06:52→09:27)
[2016-10-04 07:44] LABS: HEMATOCRIT 32.4 % (36.0-48.0); MEAN CORPUSCULAR HEMOGLOBIN 31.3 pg (25.0-35.0); MEAN CORPUSCULAR HGB CONC 35.5 g/dl (31.0-37.0); MEAN PLATELET VOLUME 10.2 fl (7.0-11.0); WHITE BLOOD COUNT 7.8 10^3/ul (4.5-11.0)
[2016-10-04 07:59] LABS: ALKALINE PHOSPHATASE 71 U/L (38-133); ALT/SGPT 33 U/L (7-56); AST/SGOT 43 U/L (15-39); BILIRUBIN,TOTAL 1.2 mg/dL (0.2-1.3); BLOOD UREA NITROGEN 10 mg/dL (7-21); CALCIUM 8.4 mg/dL (8.4-10.5); CARBON DIOXIDE 25 mmol/L (21-33); CHLORIDE 101 mmol/L (95-110); GFR AFRICAN-AMERICAN > 60; GLUCOSE,RANDOM 140 mg/dL (70-110); POTASSIUM 3.2 mmol/L (3.6-5.0); SODIUM 135 mmol/L (132-148); TOTAL PROTEIN 5.9 g/dL (5.8-8.3)
[2016-10-04] MEDS: Enoxaparin 30 mg Syringe SC SCH (09:32)
--- NOTE | 2016-10-04 10:39 | PN ---
DATE: 10/04/2016 The patient is confused but is in no acute distress. PHYSICAL EXAMINATION: VITAL SIGNS: Blood pressure varies from 167 to the 190s systolic today. Heart rate is in the 80s, s inus rhythm. NECK: Negative JVD. LUNGS: Without rales. HEART: Reveals S1, S2. EXTREMITIES: Without edema. LABORATORIES: Hemoglobin is 11.5. Chemistries: The potassium is 3.2, glucose is 140. IMPRESSION: 1. Paroxysmal atrial fibrillation, which she is back to normal sinus rhythm. 2. Accelerated hypertension. 3. Altered mental status. 4. Anemia. PLAN: Given these findings, we will add lisinopril to her regimen to help control her blood pressure . Chuy Stone MD cc: [id number] TT: 10/04/2016 10:39:26 Confirmation # [id number] Dictation # [id number] co
[2016-10-04] MEDS: Potassium Chloride 20 mEq 100 ML IVPB SCH ×2 (14:45→17:19)
--- NOTE | 2016-10-04 21:22 | PN ---
DATE: 10/04/2016 The patient was seen this Monday early afternoon in room 377, bed 1. Today, she is much more awake, and in fact responded appropriately today with a few words, but then a t times seems confused and unable to engage in any meaningful conversation. She is moving all extrem ities with no focal motor deficit. VITAL SIGNS: Unremarkable. Blood pressure was slightly elevated earlier today, but is now better. [employer] and director of social work are working on long-term plans. LABORATORIES: Unremarkable except for a potassium of 3.2, which I will supplement. Gregg Hein MD cc: [id number] TT: 10/04/2016 21:21:24 Confirmation # [id number] Dictation # [id number] jn
[2016-10-04] MEDS: Potassium Chl 30 mEq in D5-1/2 1,000 ML IV SCH (22:57)
[2016-10-05 01:25] VITALS: RESP 20
[2016-10-05 07:40] LABS: ADD MANUAL DIFF? NO
[2016-10-05 07:47] LABS: BASO # 0.03 K/mm3 (0.0-2.0); BASO % 0.3 % (0.0-3.0); EOS # 0.3 (0.0-0.7); EOS % 3.5 % (1.5-5.0); GRAN # 4.99 (1.4-6.5); HEMATOCRIT 31.8 % (36.0-48.0); LYMPH # 2.3 (1.2-3.4); LYMPH % 26.3 % (22.0-35.0); MEAN CELL VOLUME 89.1 fL (80.0-105.0); MEAN CORPUSCULAR HEMOGLOBIN 30.5 pg (25.0-35.0); MEAN CORPUSCULAR HGB CONC 34.3 g/dl (31.0-37.0); MEAN PLATELET VOLUME 10.3 fl (7.0-11.0); MONO # 1.1 (0.1-0.6); MONO % 12.9 % (1.0-6.0); PLATELET COUNT 179 10^3/uL (120.0-450.0); RED CELL DISTRIBUTION WIDTH 12.3 % (11.5-14.5); WHITE BLOOD COUNT 8.8 10^3/ul (4.5-11.0)
[2016-10-05 08:08] LABS: ALKALINE PHOSPHATASE 64 U/L (38-133); ALT/SGPT 32 U/L (7-56); AST/SGOT 33 U/L (15-39); BILIRUBIN,TOTAL 1.1 mg/dL (0.2-1.3); BLOOD UREA NITROGEN 10 mg/dL (7-21); CALCIUM 8.5 mg/dL (8.4-10.5); CARBON DIOXIDE 23 mmol/L (21-33); CHLORIDE 103 mmol/L (95-110); GFR AFRICAN-AMERICAN > 60; GLUCOSE,RANDOM 103 mg/dL (70-110); POTASSIUM 4.3 mmol/L (3.6-5.0); SODIUM 134 mmol/L (132-148); TOTAL PROTEIN 5.9 g/dL (5.8-8.3)
--- NOTE | 2016-10-05 09:44 | CT ---
PROCEDURE: CT HEAD WITHOUT CONTRAST. HISTORY: poor mri movement, r/o cva COMPARISON: MRI the brain 09/30/2016 TECHNIQUE: Axial computed tomography images were obtained through the head/brain without intravenous contrast. Radiation dose: Total exam DLP = 800 mGy-cm. FINDINGS: HEMORRHAGE: No intracranial hemorrhage. BRAIN: No mass effect or edema. There is extensive cerebral atrophy and inferred chronic microvascular ischemic changes suggested. No hemorrhage appreciated. VENTRICLES: Enlarged -consistent with the marked cerebral atrophy and volume loss CALVARIUM: Unremarkable. PARANASAL SINUSES: Unremarkable as visualized. No significant inflammatory changes. MASTOID AIR CELLS: Unremarkable as visualized. No inflammatory changes. OTHER FINDINGS: None. IMPRESSION: No intracranial hemorrhage or mass effect. Marked global atrophy and inferred prominent chronic microvascular ischemic changes/previously referenced as chronic microangiopathic changes on the MR.
[2016-10-05] MEDS: Enoxaparin 40 mg Syringe SC SCH (10:11)
[2016-10-05] MEDS: Potassium Chl 30 mEq in D5-1/2 1,000 ML IV SCH (19:20)
[2016-10-06 08:50] VITALS: TEMP 97.8; O2SAT 100
[2016-10-06] MEDS: Enoxaparin 40 mg Syringe SC SCH (10:14)
[2016-10-06 10:17] VITALS: BP 180/81; PULSE 84
--- NOTE | 2016-10-07 12:11 | DS ---
This is a 80-year-old woman who has essentially never accessed the healthcare system, was healthy all her life, although handicapped since with slowed cognitive function. She came to the Emergenc y Room not acting her usual self after a series of falls at home. Initial CT scan was unremarkable. In the Emergency Room, she was lethargic and confused, sleepy, not at all her usual self. I saw her in the ER with her 2 sisters at the bedside. She was admitted, an MRI was ordered, neurology consul tation with Dr. Paz and Dr. Christian was ordered. She went for an MRI, but it was filled with que on artifact, making it not terribly helpful. Clinically, her symptoms waxed and waned. I spoke with her brother, Juvenal, at great length regarding her condition and quality of life issues. A do not re suscitate order was written on the chart. The patient clinically improved. The initial new onset at rial fibrillation that appeared on presentation converted in the ER and never returned thanks to shane mejia and the oversight of wall steamer, Dr. Chuy Stone. The patient became more awake. Repeat CT sca n of the head was done, showing small vessel disease and lacunar infarcts, which was my clinical susp icion for this patient. She remained on a statin and aspirin. Arrangements were made for a [facility] facility and so on , 10/06/2016, she was transferred to [facility] in [place]. FINAL DISCHARGE DIAGNOSES: 1. Cerebrovascular accident. 2. Atherosclerotic cerebrovascular disease, small vessel disease 3. Cognitive function handicap since . 4. No prior contact with the healthcare system, so there is no prior diagnoses of any medical, neuro logic symptoms or dementia or any other illnesses. Gregg Hein MD cc: [id number] TT: 10/07/2016 12:09:53 en
== END 2016-10-06 11:12 | DRG 66 ==
LOC: ED 09:50 → ERH 14:03 → 2RSO 21:22 → 3RSO 10-02 12:57
PROVIDERS: ADMIT Internal Medicine; ATTEND Internal Medicine
DX: I63.9 Cerebral infarction, unspecified (principal); I48.0 Paroxysmal atrial fibrillation; F03.90 Unspecified dementia, unspecified severity, without behavioral disturbance, psychotic disturbance, mood disturbance, and anxiety; I67.2 Cerebral atherosclerosis; D64.9 Anemia, unspecified; E86.0 Dehydration; M19.90 Unspecified osteoarthritis, unspecified site; Z91.81 History of falling; Z66 Do not resuscitate; I16.0 Hypertensive urgency